=== PATIENT | male | born 1990 | race Caucasian/White ===

== ENCOUNTER 2017-10-03 01:36 | Emergency (ER) | payer OTHER ==
[~2017-10-03] VITALS: Ht 165.1 cm; Wt 72.6 kg
[2017-10-03] MEDS ORDERED: IBUPROFEN 200200 M1 PO (01:45)
[2017-10-03 02:30] VITALS: BP 110/76
== END 2017-10-03 02:40 | disposition home or self-care (01) ==
LOC: ER 01:36
DX: R09.81 Nasal congestion (principal); R51 Headache; R50.9 Fever, unspecified